=== PATIENT | male | born 2000 | race African-American/Black ===

== ENCOUNTER 2020-01-14 15:33 | Emergency (ER) | payer SELFPAY ==
[~2020-01-14] VITALS: Ht 170.2 cm; Wt 74.0 kg
[2020-01-14 16:05] VITALS: BP 148/101
[2020-01-14] MEDS ORDERED: IBUPROFEN 600MG TABLET PO ONE (19:15)
== END 2020-01-14 19:27 | disposition home or self-care (01) ==
LOC: ER 15:33
DX: S39.012A Strain of muscle, fascia and tendon of lower back, initial encounter (principal); Z98.890 Other specified postprocedural states; V43.62XA Car passenger injured in collision with other type car in traffic accident, initial encounter; Y93.89 Activity, other specified; Y92.488 Other paved roadways as the place of occurrence of the external cause
CPT/HCPCS: 99282